=== PATIENT | female | born 1985 | race Two or more races ===

== ENCOUNTER 2021-07-04 22:29 | Inpatient (IN) | payer OTHER ==
[~2021-07-04] VITALS: Ht 157.5 cm; Wt 86.6 kg
[2021-07-04] MEDS ORDERED: HYDROmorphone HCL 2 MG/ML VL IV ONE (22:45)
[2021-07-04] MEDS ORDERED: ONDANSETRON HCL 4 MG/2 ML VIAL IV ONE (22:45)
[2021-07-04] MEDS ORDERED: SODIUM CHLORIDE 0.9% 1,000 ML IVB ONE (22:45)
[2021-07-04] MEDS ORDERED: GASTROGRAFIN 30 ML SOL ONE (22:52)
[2021-07-04 23:28] LABS: Basophils # (auto) 0 10 ^3/uL (0-0.2); Basophils % (auto) 0.2 % (0.0-2.0); Eosinophils # (auto) 0 10 ^3/uL (0-0.8); Eosinophils % (auto) 0.2 % (0.0-7.0); Hematocrit 41.1 % (36.0-46.0); Hemoglobin 13.3 g/dL (12.2-16.2); Lymphocytes # (auto) 0.7 10 ^3/uL (0.4-5.4); Lymphocytes % (auto) 5.7 % (10.0-50.0); Mean Corpuscular Hemoglobin 30.5 pg (28.0-32.0); Mean Corpuscular Hgb Conc. 32.5 g/dL (32.0-36.0); Mean Corpuscular Volume 94.1 fL (80.0-100.0); Monocytes # (auto) 0.4 10 ^3/uL (0-1.3); Monocytes % (auto) 3.5 % (0.0-12.0); Neutrophils # (auto) 10.6 10 ^3/uL (1.6-8.6); Neutrophils % (auto) 90.4 % (37.0-80.0); Red Blood Cells 4.37 10^6/uL (4.0-5.20); Red Cell Distribution Width 13.9 % (11.8-14.3); White Blood Cell 11.7 10^3/uL (4.4-10.8)
[2021-07-04 23:44] LABS: INR 1.4 (0.9-1.15); Partial Thromboplastin Time 24.2 sec (23.6-33.0)
[2021-07-04 23:46] LABS: Albumin 3.3 g/dL (3.4-5.0); BUN/Creatinine Ratio 15.8; Calcium 8.8 mg/dL (8.5-10.1); Magnesium 2.3 mg/dL (1.6-2.6); Potassium 3.6 mmol/L (3.5-5.1)
[2021-07-04 23:49] LABS: Bilirubin, Total 1.8 mg/dL (0.2-1.0); Total Protein 7.4 g/dL (6.4-8.2)
[2021-07-05] MEDS ORDERED: KETOROLAC TROMETH 30 MG/ML 1ML VIAL IV ONE (02:15)
[2021-07-05 03:07] LABS: Urine Bacteria NONE SEEN /hpf (None Seen); Urine Blood 3+ /uL (Negative); Urine Mucus FEW (None Seen); Urine Specific Gravity 1.027 (1.001-1.035); Urine Sperm PRESENT /hpf (None Seen); Urine WBC 10 /hpf (0 - 5)
[2021-07-05] MEDS ORDERED: MORPHINE SULFATE 4 MG/ML SYR/VIAL IV PRN (05:30)
[2021-07-05] MEDS ORDERED: ONDANSETRON HCL 4 MG/2 ML VIAL IV PRN (05:30)
[2021-07-05] MEDS ORDERED: HYDROcodone-ACET 5/325MG TAB PO PRN (05:30)
[2021-07-05] MEDS ORDERED: ACETAMINOPHEN 325 MG TAB PO PRN (05:30)
[2021-07-05] MEDS: SODIUM CHLORIDE 0.9% 1,000 ML IV SCH ×2 (06:38→22:52)
[2021-07-05] MEDS: cefTRIAXone 1GM/50ML D5W 50 ML IV SCH (09:26)
[2021-07-05] MEDS: PANTOPRAZOLE 40 MG/10 ML VIAL INJ IV SCH (09:26)
[2021-07-05 22:20] VITALS: BP 105/66
[2021-07-06 05:25] VITALS: BP 102/65
[2021-07-06 05:41] LABS: Basophils # (auto) 0 10 ^3/uL (0-0.2); Basophils % (auto) 0.7 % (0.0-2.0); Eosinophils # (auto) 0.2 10 ^3/uL (0-0.8); Hematocrit 33.6 % (36.0-46.0); Hemoglobin 11.3 g/dL (12.2-16.2); Lymphocytes # (auto) 2.2 10 ^3/uL (0.4-5.4); Lymphocytes % (auto) 37.4 % (10.0-50.0); Mean Corpuscular Hemoglobin 31.6 pg (28.0-32.0); Mean Corpuscular Hgb Conc. 33.5 g/dL (32.0-36.0); Mean Corpuscular Volume 94.4 fL (80.0-100.0); Monocytes # (auto) 0.5 10 ^3/uL (0-1.3); Monocytes % (auto) 8.6 % (0.0-12.0); Neutrophils % (auto) 50.3 % (37.0-80.0); Nucleated Red Blood Cells % 0.2 %; Red Blood Cells 3.56 10^6/uL (4.0-5.20); Red Cell Distribution Width 14.4 % (11.8-14.3); White Blood Cell 5.9 10^3/uL (4.4-10.8)
[2021-07-06] MEDS: cefTRIAXone 1GM/50ML D5W 50 ML IV SCH (07:45)
[2021-07-06] MEDS: PANTOPRAZOLE 40 MG/10 ML VIAL INJ IV SCH (07:45)
[2021-07-06] MEDS: SODIUM CHLORIDE 0.9% 1,000 ML IV SCH ×2 (08:10→21:30)
[2021-07-06 09:00] VITALS: BP 116/74
[2021-07-06 11:40] LABS: INR 1.35 (0.9-1.15); Partial Thromboplastin Time 27.5 sec (23.6-33.0)
[2021-07-06 12:55] LABS: Albumin 2.6 g/dL (3.4-5.0); Calcium 8.2 mg/dL (8.5-10.1); Potassium 4.1 mmol/L (3.5-5.1)
[2021-07-06 12:59] LABS: BUN/Creatinine Ratio 15.7; Bilirubin, Total 1.3 mg/dL (0.2-1.0); Total Protein 5.6 g/dL (6.4-8.2)
[2021-07-06] MEDS: metroNIDAZOLE 500MG/100ML 100 ML IV SCH ×2 (14:05→21:42)
[2021-07-06] MEDS ORDERED: LIDOCAINE VISCOUS 2% 15ML UD ONE (16:45)
[2021-07-06] MEDS ORDERED: MIDAZOLAM HCL 5 MG/ML-1ML VIAL ONE (16:45)
[2021-07-06] MEDS ORDERED: SODIUM CHLORIDE LOCK 10 ML ONE (16:45)
[2021-07-06] MEDS ORDERED: fentaNYL CITRATE 100 MCG/2 ML VL ONE (16:46)
[2021-07-06 17:00] VITALS: BP 122/81
[2021-07-06] MEDS: diphenhdrAMINE HCL 50 MG/1 ML VL ONE ×2 (17:23→17:29)
[2021-07-06] MEDS: SUCRALFATE 1 GM/10 ML ORAL SUSP GT SCH (21:42)
[2021-07-06 22:21] VITALS: BP 125/88
[2021-07-07 05:00] VITALS: BP 98/68
[2021-07-07 05:41] LABS: Basophils # (auto) 0.1 10 ^3/uL (0-0.2); Basophils % (auto) 0.9 % (0.0-2.0); Eosinophils # (auto) 0.1 10 ^3/uL (0-0.8); Eosinophils % (auto) 2.4 % (0.0-7.0); Hematocrit 33.9 % (36.0-46.0); Lymphocytes # (auto) 2.2 10 ^3/uL (0.4-5.4); Lymphocytes % (auto) 35.7 % (10.0-50.0); Mean Corpuscular Hgb Conc. 32.4 g/dL (32.0-36.0); Mean Corpuscular Volume 95.6 fL (80.0-100.0); Monocytes # (auto) 0.6 10 ^3/uL (0-1.3); Monocytes % (auto) 9.3 % (0.0-12.0); Neutrophils # (auto) 3.2 10 ^3/uL (1.6-8.6); Neutrophils % (auto) 51.7 % (37.0-80.0); Nucleated Red Blood Cells % 0.1 %; Red Blood Cells 3.54 10^6/uL (4.0-5.20); White Blood Cell 6.1 10^3/uL (4.4-10.8)
[2021-07-07] MEDS: metroNIDAZOLE 500MG/100ML 100 ML IV SCH ×2 (05:58→13:59)
[2021-07-07 06:02] LABS: Calcium 7.8 mg/dL (8.5-10.1); Magnesium 2.2 mg/dL (1.6-2.6); Potassium 3.6 mmol/L (3.5-5.1)
[2021-07-07 06:04] LABS: BUN/Creatinine Ratio 9.1
[2021-07-07] MEDS: SUCRALFATE 1 GM/10 ML ORAL SUSP GT SCH ×2 (06:25→11:12)
[2021-07-07] MEDS: SODIUM CHLORIDE 0.9% 1,000 ML IV SCH (10:50)
[2021-07-07] MEDS: cefTRIAXone 1GM/50ML D5W 50 ML IV SCH (11:11)
[2021-07-07] MEDS: PANTOPRAZOLE 40 MG/10 ML VIAL INJ IV SCH (11:11)
[2021-07-07] MEDS ORDERED: PANT40TA2 PO (12:33)
[2021-07-07] MEDS ORDERED: METR500T PO (12:33)
[2021-07-07] MEDS ORDERED: LEVO500T31 PO (12:33)
[2021-07-07] MEDS ORDERED: SUCR1TAB22 PO (12:33)
[2021-07-07 14:19] VITALS: BP 111/79
== END 2021-07-07 17:40 | disposition home or self-care (01) | DRG 690 ==
LOC: ER 22:33 → WEST WING 07-05 05:25
PROVIDERS: ADMIT Nurse Practitioner; ATTEND Internal Medicine
PROC: 0DB88ZX Excision of Small Intestine, Via Natural or Artificial Opening Endoscopic, Diagnostic (ICD-10-PCS; 2021-07-06)
PROC: 0DB68ZX Excision of Stomach, Via Natural or Artificial Opening Endoscopic, Diagnostic (ICD-10-PCS; principal; 2021-07-06 17:17)
DX: N13.6 Pyonephrosis (principal); E28.2 Polycystic ovarian syndrome; E66.9 Obesity, unspecified; Z20.822 Contact with and (suspected) exposure to COVID-19; Z68.34 Body mass index [BMI] 34.0-34.9, adult; K29.70 Gastritis, unspecified, without bleeding; K44.9 Diaphragmatic hernia without obstruction or gangrene; K52.9 Noninfective gastroenteritis and colitis, unspecified; K59.00 Constipation, unspecified; K80.70 Calculus of gallbladder and bile duct without cholecystitis without obstruction; N20.0 Calculus of kidney; N21.0 Calculus in bladder; K82.8 Other specified diseases of gallbladder; N92.0 Excessive and frequent menstruation with regular cycle; Z80.1 Family history of malignant neoplasm of trachea, bronchus and lung; Z82.3 Family history of stroke; Z82.49 Family history of ischemic heart disease and other diseases of the circulatory system; Z87.442 Personal history of urinary calculi; Z98.84 Bariatric surgery status
CPT/HCPCS: 36415; 43239; 74176; 74181; 76705; 76856; 80048; 80053; 81001; 82150; 82247; 83690; 83735; 84702; 85025; 85610; 85730; 86850; 86900; 86901; 87086; 87426; 93005; 96361; 96365; 96366; 96375; C9113; G0378; J0696; J1885; J2250; J2405; J3490